=== PATIENT | female | born 1945 | race Caucasian/White ===

== ENCOUNTER 2018-05-20 10:44 | Inpatient (IN) | payer OTHER ==
--- NOTE | 2018-05-20 10:52 | EDPHY ---
H & P Stated Complaint: SOB for 1 week, worse with exertion. Time Seen by Provider: 05/20/18 10:51 - Personal History Current Tetanus Diphtheria and Acellular Pertussis (TDAP): Yes Tetanus Vaccine Date: jan 2011 - Medical/Surgical History Hx Asthma: No Hx Chronic Respiratory Disease: Yes Hx Diabetes: No Hx Cardiac Disease: No Hx Renal Disease: No Hx Cirrhosis: No Hx Alcoholism: No Hx HIV/AIDS: No Hx Splenectomy or Spleen Trauma: No Other PMH: 2013. Constitutional: Initial Vital Signs Temperature (C) 36.4 C 05/20/18 10:45 Heart Rate 126 H 05/20/18 10:45 Respiratory Rate 22 H 05/20/18 10:45 Blood Pressure 138/80 H 05/20/18 10:45 O2 Sat (%) 91 L 05/20/18 10:45 O2 Delivery Mode Room Air O2 (L/minute) 2 Allergies/Adverse Reactions: bacitracin [Bacitracin] Allergy (Unknown, Verified 02/10/11 18:46) latex [Latex] Allergy (Verified 02/10/11 18:46) dust Allergy (Unknown, Uncoded 02/10/11 18:46) Home Medications: Medication Instructions Recorded Aspirin EC [Aspirin EC 81 mg (*)] 81 mg PO DAILY 05/20/18 Atorvastatin Calcium [Lipitor 20 20 mg PO DAILY 05/20/18 mg (*)] Cholecalciferol Vit D3 [Vitamin D3 5,000 units PO DAILY 05/20/18 2000 units tab (OTC)] Cyanocobalamin [Vitamin B12 (*)] 1,000 mcg PO DAILY 05/20/18 Fluticasone Nasal [Flonase Nasal 1 sprays NASAL DAILY PRN 05/20/18 [place] (RX)] Fluticasone/Salmeter 250/50Mcg 1 puffs IH BID 05/20/18 [Advair 250/50 (*)] Herbals/Supplements -Info Only 1 ea PO DAILY 05/20/18 Levothyroxine [Synthroid 75 mcg 75 mcg PO DAILY06 05/20/18 (*)] Loratadine [Claritin] 10 mg PO DAILY 05/20/18 Losartan Potassium 100 mg PO DAILY 05/20/18 Spironolact/Hydrochlorothiazid 1 each PO DAILY 05/20/18 [Spironolactone-Hctz 25-25 Tab] Medical Decision Making - Diagnostics Imaging Results: Imaging Impressions Chest/Thorax CTA 05/20/18 10:58 Impression: 1. Large volume bilateral segmental and subsegmental pulmonary emboli diffusely similar to the prior study from January,. 2. Small left pleural effusion. 3. Bands of subsegmental atelectasis at the lung bases. Some of this could be related to pulmonary infarct as well. Findings discussed with the ophthalmic medical assistant with Gideon Kumar MD at 12: 45 hour, 05/20/2018. Imaging: Discussed imaging studies w/ on call pharmacy technician Radiologist, I viewed and interpreted images myself ED Course/Re-evaluation: CHIEF COMPLAINT: Shortness of breath with exertion HISTORY OF PRESENT ILLNESS: The patient is a 72 y/o female with a history of a PE (2013) and chronic cough complaining of worsening shortness of breath with exertion onset 1 week ago. The patient was on anticoagulants (Lovenox and Coumadin) for a year after her last PE and is still on a baby aspirin daily. For the last several months she has also had a cough associated with clear mucus in the morning. Last Wednesday, one week ago, she noticed worsening shortness of breath with exertion. Her symptoms are not exacerbated when lying flat. Yesterday she stopped taking her Spironolactone/HCTZ, and has noticed that her shortness of breath is mildly improved. However, she now feels like her calves are "hard". Due to her shortness of breath, she decided to present to the emergency department as her symptoms are similar to her last PE. No fever, headache, body aches, lightheadedness, chest pain, heart palpitations, abdominal pain, urinary or bowel complaints, numbness, paresthesias. REVIEW OF SYSTEMS: A comprehensive 10 system review of systems is otherwise negative aside from elements mentioned in the history of present illness and medical decision making. PHYSICAL EXAM: HR, BP, O2 Sat, RR. Temp noted General Appearance: Alert, well hydrated, appropriate, and non-toxic appearing. Head: Atraumatic without scalp tenderness or obvious injury Eyes: Pupils equal, round, reactive to light and accommodation, EOMI, no trauma , no injection. Ears: Clear bilaterally, no perforation, normal landmarks Nose: Atraumatic, no rhinorrhea, clear. Throat: There is no erythema or exudates, no lesions, normal tonsils, mucus membranes moist. Neck: Supple, 2+ carotid upstroke, nontender, no lymphadenopathy. Respiratory: Dyspnea with exertion. No retractions, no distress, no wheezes, and no accessory muscle use. Lungs are clear to auscultation bilaterally. Cardiovascular: Regular rate and rhythm, no murmurs, rubs, or gallops. Bilateral carotid, radial, dorsalis pedis, and posterior tibial pulses intact. Good capillary refill all extremities. Gastrointestinal: Abdomen is soft, nontender, non-distended, no masses, no rebound, no guarding, no peritoneal signs. Musculoskeletal: Normal active ROM of all extremities, atraumatic. Neurological: Alert, appropriate, and interactive. The patient has normal DTRs and non-focal cranial nerves, motor, sensory, and cerebellar exam. Skin: No rashes, good turgor, no nodules on palpation. Past medical history: PE, chronic cough, hypercholesteremia, hypertension, on a diuretic Past surgical history: Denies Family history: Denies Social history: Lives in [place], single, retired DIAGNOSTICS/PROCEDURES/CRITICAL CARE TIME: EKG: The 12 lead EKG was interpreted by myself as sinus tachycardia with a rate of 123. See hard copy and/or "tracemaster" electronic copy for interpretation. Chest CTA: Large volume bilateral segmental and subsegmental pulmonary emboli diffusely similar to the prior study from January,. Small left pleural effusion. DIFFERENTIAL DIAGNOSIS: The differential diagnosis for the patient's shortness of breath and hypoxemia included but was not limited to pneumonia, myocardial infarction, acute mountain sickness, high altitude pulmonary edema, congestive heart failure, and pulmonary embolus. MEDICAL DECISION MAKING: The patient is a 72 y/o female with a history of a PE (2013) and chronic cough presenting with worsening shortness of breath with exertion, onset 1 week ago. The patient was on anticoagulants for a year after her last PE and is still on a baby aspirin daily. Last Wednesday, one week ago, she noticed worsening shortness of breath with exertion. Her symptoms are not exacerbated when lying flat. Yesterday she stopped taking her Spironolactone/HCTZ, and has noticed that her shortness of breath is mildly improved. On exam she has distinct dyspnea with exertion. I am concerned that she has a PE. Labs, EKG and CTA ordered. Patient will need a CTA due to her prior history of a PE as well as her age; DuoNeb administered. 1059: I interpreted patient's EKG as sinus tachycardia with a rate of 123, which is concerning as this is indicative of a PE. 1245: I spoke with Dr. Proctor, radiologist, regarding this patient's chest CTA. She has large volume bilateral segmental and subsegmental pulmonary emboli diffusely similar to the prior study from January,. She also a small left pleural effusion. 1255: Reassessed patient and discussed laboratory and imaging findings. I have discussed plan for admission, which she is comfortable with. 120mg SC Lovenox administered. 1258: I consulted with the hospitalist service, Dr. Martinez accepts admission of this patient. - Data Points Laboratory Results: Laboratory Results 05/20/18 11:25 05/20/18 11:25 05/20/18 05/20/18 05/20/18 11:31 11:31 11:25 WBC RBC Hgb POC Hgb 15.0 gm/dL gm/dL (12.6-16.3) Hct POC Hct 44 % % (38-47) MCV MCH MCHC RDW Plt Count MPV Neut % (Auto) Lymph % (Auto) [place] % (Auto) Eos % (Auto) Baso % (Auto) Nucleat RBC Rel Count Absolute Neuts (auto) Absolute Lymphs (auto) Absolute Monos (auto) Absolute Eos (auto) Absolute Basos (auto) Absolute Nucleated RBC Immature Gran % Immature Gran # POC Sodium 136 mEq/L mEq/L (135-145) Sodium 133 mEq/L L mEq/L (135-145) POC Potassium 3.8 mEq/L mEq/L (3.3-5.0) Potassium 4.3 mEq/L mEq/L (3.5-5.2) POC Chloride 96 mEq/L L mEq/L (97-110) Chloride 96 mEq/L L mEq/L (97-110) Carbon Dioxide 26 mEq/l mEq/l (22-31) POC Total CO2 25 mEq/L mEq/L (22-31) Anion Gap 11 mEq/L mEq/L (6-14) POC BUN 18 mg/dL mg/dL (7-23) BUN 19 mg/dL mg/dL (7-23) Creatinine 0.8 mg/dL mg/dL (0.6-1.0) POC Creatinine 0.9 mg/dL mg/dL (0.6-1.0) Estimated GFR > 60 Glucose 113 mg/dL H mg/dL (70-100) POC Glucose 120 mg/dL H mg/dL (70-100) Calcium 9.9 mg/dL mg/dL (8.5-10.4) POC Troponin I 0.00 ng/mL ng/mL (0.00-0.08) NT-Pro-B Natriuret Pep 140 pg/mL H pg/mL (0-125) 05/20/18 11:25 WBC 8.72 10^3/uL 10^3/uL (3.80-9.50) RBC 4.26 10^6/uL 10^6/uL (4.18-5.33) Hgb 14.0 g/dL g/dL (12.6-16.3) POC Hgb Hct 41.5 % % (38.0-47.0) POC Hct MCV 97.4 fL fL (81.5-99.8) MCH 32.9 pg pg (27.9-34.1) MCHC 33.7 g/dL g/dL (32.4-36.7) RDW 15.1 % % (11.5-15.2) Plt Count 204 10^3/uL 10^3/uL (150-400) MPV 10.0 fL fL (8.7-11.7) Neut % (Auto) 80.3 % H % (39.3-74.2) Lymph % (Auto) 9.4 % L % (15.0-45.0) [place] % (Auto) 8.4 % % (4.5-13.0) Eos % (Auto) 1.0 % % (0.6-7.6) Baso % (Auto) 0.6 % % (0.3-1.7) Nucleat RBC Rel Count 0.0 % % (0.0-0.2) Absolute Neuts (auto) 7.00 10^3/uL H 10^3/uL (1.70-6.50) Absolute Lymphs (auto) 0.82 10^3/uL L 10^3/uL (1.00-3.00) Absolute Monos (auto) 0.73 10^3/uL 10^3/uL (0.30-0.80) Absolute Eos (auto) 0.09 10^3/uL 10^3/uL (0.03-0.40) Absolute Basos (auto) 0.05 10^3/uL 10^3/uL (0.02-0.10) Absolute Nucleated RBC 0.00 10^3/uL 10^3/uL (0-0.01) Immature Gran % 0.3 % % (0.0-1.1) Immature Gran # 0.03 10^3/uL 10^3/uL (0.00-0.10) POC Sodium Sodium POC Potassium Potassium POC Chloride Chloride Carbon Dioxide POC Total CO2 Anion Gap POC BUN BUN Creatinine POC Creatinine Estimated GFR Glucose POC Glucose Calcium POC Troponin I NT-Pro-B Natriuret Pep Medications Given: Discontinued Medications Albuterol/Ipratropium (Duoneb) 3 ml IH EDNOW ONE Stop: 05/20/18 10:58 Last Admin: 05/20/18 11:44 Dose: 3 ml Enoxaparin Sodium (Lovenox) 120 mg SC EDNOW ONE Stop: 05/20/18 12:54 Last Admin: 05/20/18 13:33 Dose: 120 mg Point of Care Test Results: Chemistry 05/20/18 05/20/18 11:31 11:31 POC Sodium 136 mEq/L mEq/L (135-145) POC Potassium 3.8 mEq/L mEq/L (3.3-5.0) POC Chloride 96 mEq/L L mEq/L (97-110) POC Total CO2 25 mEq/L mEq/L (22-31) POC BUN 18 mg/dL mg/dL (7-23) POC Creatinine 0.9 mg/dL mg/dL (0.6-1.0) POC Glucose 120 mg/dL H mg/dL (70-100) POC Troponin I 0.00 ng/mL ng/mL (0.00-0.08) ISTAT H&H 05/20/18 11:31 POC Hgb 15.0 gm/dL gm/dL (12.6-16.3) POC Hct 44 % % (38-47) Departure - Departure Disposition: [facility] Acute Clinical Impression: Bilateral Large Volume PE, Recurrent pulmonary embolism Pulmonary embolism Qualifiers: Pulmonary embolism type: other Chronicity: acute Acute cor pulmonale presence: without acute cor pulmonale Qualified Code(s): I26.99 - Other pulmonary embolism without acute cor pulmonale Condition: Fair Report Scribed for: Gideon Kumar Report Scribed by: Gin Mendoza Date of Report: 05/20/18 Time of Report: 10:52
[2018-05-20] MEDS ORDERED: IPRATROPIUM/ALBUTEROL 3 ML DEYVIAL IH ONE (10:57)
[2018-05-20 11:40] LABS: PLATELET COUNT 204 10^3/uL (150-400)
[2018-05-20] MEDS ORDERED: IOPAMIDOL (ISOVUE 370) 100 ML BTL IV ONE (11:50)
--- NOTE | 2018-05-20 12:17 | CPEKG ---
Test Reason : OPEN Blood Pressure : / mmHG Vent. Rate : 123 BPM Atrial Rate : 124 BPM P-R Int : 165 ms QRS Dur : 079 ms QT Int : 302 ms P-R-T Axes : 010 005 088 degrees QTc Int : 432 ms Sinus tachycardia Confirmed by Gideon Kumar ([id number]) on 05/20/2018 12:17:09 PM Referred By: Gideon Kumar Confirmed By:Gideon Kumar
[2018-05-20] MEDS ORDERED: ENOXAPARIN 120 MG/0.8 ML SYR SC ONE (12:53)
[2018-05-20] MEDS ORDERED: ONDANSETRON 4 MG/2 ML VIAL IVP PRN (13:50)
[2018-05-20] MEDS ORDERED: ACETAMINOPHEN 325 MG TAB PO PRN (13:50)
[2018-05-20] MEDS ORDERED: ONDANSETRON DISINTEGRATING 4 MG TAB PO PRN (13:50)
[2018-05-20 15:12] LABS: INR 1.09 (0.83-1.16); PROTIME(PATIENT) 13.7 SEC (12.0-15.0)
[2018-05-20] MEDS ORDERED: FLUTICASONE NASAL 120 SPRAYS/16 GM MDI EACHNARE PRN (15:12)
--- NOTE | 2018-05-20 18:25 | PDGENHP ---
History and Physical - Chief Complaint SOB - History of Present Illness Jerilyn Leon is a 72 yo F with a PMHx of PE (2013), HTN, Hypothyroidism, HLD, chronic cough who presents to ED for SOB. She reports that she has had progressively worsening JOHNSON for the past week. It has gotten so severe where she cant do simple tasks like laundry with significant SOB. She reports a chronic cough with clear sputum, no recent changes. She notes that she was placed on BP meds in January including Losartan and Spironolactone/HCTZ which she stopped yesterday with some improvement in SOB. She denies any f/c, chest pain, LH, abdominal pain, dysuria, d/c. She does note some increased swelling in her legs b/l. History Information - Allergies/Home Medication List Allergies/Adverse Reactions: bacitracin [Bacitracin] Allergy (Unknown, Verified 02/10/11 18:46) latex [Latex] Allergy (Verified 02/10/11 18:46) dust Allergy (Unknown, Uncoded 02/10/11 18:46) Home Medications: Aspirin EC [Aspirin EC 81 mg (*)] 81 mg PO DAILY 05/20/18 [Last Taken 05/20/18] Atorvastatin Calcium [Lipitor 20 mg (*)] 20 mg PO DAILY 05/20/18 [Last Taken 07/03] Cholecalciferol Vit D3 [Vitamin D3 2000 units tab (OTC)] 5,000 units PO DAILY [Last Taken 05/20/18] Cyanocobalamin [Vitamin B12 (*)] 1,000 mcg PO DAILY 05/20/18 [Last Taken ] Fluticasone Nasal [Flonase Nasal [place] (RX)] 1 sprays NASAL DAILY PRN 05/20/18 [ Last Taken 05/18/18] Fluticasone/Salmeter 250/50Mcg [Advair 250/50 (*)] 1 puffs IH BID 05/20/18 [ Last Taken 05/20/18] Herbals/Supplements -Info Only 1 ea PO DAILY 05/20/18 [Last Taken Unknown] Levothyroxine [Synthroid 75 mcg (*)] 75 mcg PO DAILY06 05/20/18 [Last Taken 07/03] Loratadine [Claritin] 10 mg PO DAILY 05/20/18 [Last Taken 05/20/18] Losartan Potassium 100 mg PO DAILY 05/20/18 [Last Taken 05/20/18] Spironolact/Hydrochlorothiazid [Spironolactone-Hctz 25-25 Tab] 1 each PO DAILY 05/20/18 [Last Taken 05/18/18] I have personally reviewed and updated: family history, medical history, social history, surgical history - Past Medical History hypertension, hyperlipidemia, pulmonary embolism - Surgical History Reports: no pertinent surgical hx - Family History Positive for: non-pertinent - Social History Smoking Status: Former smoker Review of Systems Review of Systems: ROS: 10pt was reviewed & negative except for what was stated in HPI & below Physical Exam Physical Exam: Temp Pulse Resp BP Pulse Ox 36.4 C 96 14 116/80 96 05/20/18 10:45 05/20/18 14:43 05/20/18 14:43 05/20/18 14:43 05/20/18 14:43 O2 (L/minute) 4 Constitutional: obese Eyes: PERRL Ears, Nose, Mouth, Throat: moist mucous membranes Cardiovascular: tachycardia Respiratory: no respiratory distress, clear to auscultation Gastrointestinal: soft, non-tender abdomen Skin: warm Musculoskeletal: full muscle strength Neurologic: AAOx3 Psychiatric: interacting appropriately Lab Data & Imaging Review 05/20/18 11:25 05/20/18 11:25 WBC 8.72 10^3/uL (3.80-9.50) 05/20/18 11:25 RBC 4.26 10^6/uL (4.18-5.33) 05/20/18 11:25 Hgb 14.0 g/dL (12.6-16.3) 05/20/18 11:25 POC Hgb 15.0 gm/dL (12.6-16.3) 05/20/18 11:31 Hct 41.5 % (38.0-47.0) 05/20/18 11:25 POC Hct 44 % (38-47) 05/20/18 11:31 MCV 97.4 fL (81.5-99.8) 05/20/18 11:25 MCH 32.9 pg (27.9-34.1) 05/20/18 11:25 MCHC 33.7 g/dL (32.4-36.7) 05/20/18 11:25 RDW 15.1 % (11.5-15.2) 05/20/18 11:25 Plt Count 204 10^3/uL (150-400) 05/20/18 11:25 MPV 10.0 fL (8.7-11.7) 05/20/18 11:25 Neut % (Auto) 80.3 % (39.3-74.2) H 05/20/18 11:25 Lymph % (Auto) 9.4 % (15.0-45.0) L 05/20/18 11:25 [place] % (Auto) 8.4 % (4.5-13.0) 05/20/18 11:25 Eos % (Auto) 1.0 % (0.6-7.6) 05/20/18 11:25 Baso % (Auto) 0.6 % (0.3-1.7) 05/20/18 11:25 Nucleat RBC Rel Count 0.0 % (0.0-0.2) 05/20/18 11:25 Absolute Neuts (auto) 7.00 10^3/uL (1.70-6.50) H 05/20/18 11:25 Absolute Lymphs (auto) 0.82 10^3/uL (1.00-3.00) L 05/20/18 11:25 Absolute Monos (auto) 0.73 10^3/uL (0.30-0.80) 05/20/18 11:25 Absolute Eos (auto) 0.09 10^3/uL (0.03-0.40) 05/20/18 11:25 Absolute Basos (auto) 0.05 10^3/uL (0.02-0.10) 05/20/18 11:25 Absolute Nucleated RBC 0.00 10^3/uL (0-0.01) 05/20/18 11:25 Immature Gran % 0.3 % (0.0-1.1) 05/20/18 11:25 Immature Gran # 0.03 10^3/uL (0.00-0.10) 05/20/18 11:25 PT 13.7 SEC (12.0-15.0) 05/20/18 13:25 INR 1.09 (0.83-1.16) 05/20/18 13:25 APTT 28.0 SEC (23.0-38.0) 05/20/18 13:25 Heparin Anti-Xa, Unfract < 0.10 IU/mL (0.32-0.67) L 05/20/18 13:25 POC Sodium 136 mEq/L (135-145) 05/20/18 11:31 Sodium 133 mEq/L (135-145) L 05/20/18 11:25 POC Potassium 3.8 mEq/L (3.3-5.0) 05/20/18 11:31 Potassium 4.3 mEq/L (3.5-5.2) 05/20/18 11:25 POC Chloride 96 mEq/L (97-110) L 05/20/18 11:31 Chloride 96 mEq/L (97-110) L 05/20/18 11:25 Carbon Dioxide 26 mEq/l (22-31) 05/20/18 11:25 POC Total CO2 25 mEq/L (22-31) 05/20/18 11:31 Anion Gap 11 mEq/L (6-14) 05/20/18 11:25 POC BUN 18 mg/dL (7-23) 05/20/18 11:31 BUN 19 mg/dL (7-23) 05/20/18 11:25 Creatinine 0.8 mg/dL (0.6-1.0) 05/20/18 11:25 POC Creatinine 0.9 mg/dL (0.6-1.0) 05/20/18 11:31 Estimated GFR > 60 05/20/18 11:25 Glucose 113 mg/dL (70-100) H 05/20/18 11:25 POC Glucose 120 mg/dL (70-100) H 05/20/18 11:31 Calcium 9.9 mg/dL (8.5-10.4) 05/20/18 11:25 POC Troponin I 0.00 ng/mL (0.00-0.08) 05/20/18 11:31 NT-Pro-B Natriuret Pep 140 pg/mL (0-125) H 05/20/18 11:25 Assessment & Plan Assessment: Pulmonary embolism (Acute) - Reports JOHNSON worsening for past week - CTA on admission showing large volume b/l segmental and subsegmental PEs - Has had PE in 2013 perioperatively, was on coumadin at that time - Started on Heparin gtt in ED, transition to PO AC tomorrow as appropriate - No clear etiology for PE, patient unsure of age-appropriate cancer screening including mammogram, colonoscopy, would f/u with PCP to complete these - BNP 140, Troponin negative on admission Hyponatremia - Na 133on admission - Repeat Na in the AM HLD - Continue home Atorvastatin Hypothyroidism - Continue home levothyroxine FEN: Regular DVT PPx: Heparin gtt Code: FULL Dispo: Admit to Observation
[2018-05-20] MEDS: FLUTICASONE/SALMETER 250/50MCG DISKUS IH SCH (20:11)
[2018-05-21] MEDS: HEPARIN 10,000 UNIT/10 ML MDV (1,000 UNIT/ML) IVP PRN ×2 (01:48→18:40)
[2018-05-21] MEDS: HEPARIN/DEXTROSE 500 ML IV SCH ×2 (01:49→21:44)
[2018-05-21] MEDS: LEVOTHYROXINE 75 MCG TAB PO SCH (05:00)
[2018-05-21] MEDS: ATORVASTATIN CALCIUM 20 MG TAB PO SCH (07:55)
[2018-05-21] MEDS: CYANO/VITAMIN B12 1000 MCG TAB PO SCH (07:55)
[2018-05-21] MEDS: ASPIRIN EC 81 MG TAB PO SCH (07:55)
[2018-05-21] MEDS: CETIRIZINE 10 MG TAB PO SCH (07:55)
[2018-05-21] MEDS: LOSARTAN POTASSIUM 50 MG TAB PO SCH (07:58)
[2018-05-21] MEDS: FLUTICASONE/SALMETER 250/50MCG DISKUS IH SCH ×2 (10:08→21:35)
--- NOTE | 2018-05-21 14:27 | ASMTCMCOM ---
CM Note CM Note Notes: Pt was admitted with SOB, bilateral pulmonary emboli. She has a hx of PEs. Pt lives alone in a condo in [place]. PT/OT have cleared pt. Anticipate d/c with no CM needs when medically cleared. CM will continue to follow for any change in needs. D/C plan: anticipate home independent Date Signed: 05/21/2018 02:26 PM Electronically Signed By:KACY Malave
--- NOTE | 2018-05-21 15:34 | HOSPPROG ---
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, unprovoked - lifelong anticoagulation recommended * Possible hematuria -check UA * HTN -holding diuretic for low BP * Morbid obesity -BMI 40 Subjective: Still SOB with exertion Objective: Vital Signs Temp Pulse Resp BP Pulse Ox 36.6 C 83 16 121/60 H 96 05/21/18 15:08 05/21/18 15:08 05/21/18 15:08 05/21/18 15:08 05/21/18 15:08 Laboratory Results 05/21/18 04:55 PT 13.7 SEC (12.0-15.0) 05/20/18 13:25 INR 1.09 (0.83-1.16) 05/20/18 13:25 CTA chest - large volume PE - Time Spent With Patient Time Spent with Patient: greater than 35 minutes (extensive questions answered) Time Spent with Patient: Greater than 35 minutes spent on this patients care, greater than 50% of time spent counseling, educating, and coordinating care regarding the above mentioned plan. - Physical Exam Constitutional: no apparent distress, appears nourished, not in pain Cardiovascular: regular rate and rhythym, no murmur, rub, or gallop Respiratory: no respiratory distress, no rales or rhonchi, clear to auscultation Skin: no rashes or abrasions, no fluctuance, no induration Neurologic: AAOx3, sensation intact bilaterally Psychiatric: interacting appropriately ICD10 Worksheet Patient Problems: Problems Problem Status Onset Pulmonary embolism Acute Recurrent pulmonary embolism Acute
--- NOTE | 2018-05-21 18:31 | PDMN ---
Medical Necessity Medical necessity: MCG M290 PE, A-4 days: 72 yo presents with SOB and worsening JOHNSON. Eval reveals acute PE, initially OBS for workup/tx but pt meets IP criteria med nec after 24 hours OBS care as pt still w/ persistent hypoxia with sig JOHNSON, IV heparin to continue. Important to note, this is 2nd PE event unprovoked. Pt cont to require O2 to maintain sat>90%. Hx PE, HTN, Hypothyroid , HLD, chronic cough. Change to Ip status 05/21/18@1531 per MD order
[2018-05-22] MEDS: LEVOTHYROXINE 75 MCG TAB PO SCH (05:07)
[2018-05-22] MEDS: LOSARTAN POTASSIUM 50 MG TAB PO SCH (07:46)
[2018-05-22] MEDS: CETIRIZINE 10 MG TAB PO SCH (07:50)
[2018-05-22] MEDS: CYANO/VITAMIN B12 1000 MCG TAB PO SCH (07:50)
[2018-05-22] MEDS: ASPIRIN EC 81 MG TAB PO SCH (07:50)
[2018-05-22] MEDS: ATORVASTATIN CALCIUM 20 MG TAB PO SCH (07:50)
[2018-05-22] MEDS: FLUTICASONE/SALMETER 250/50MCG DISKUS IH SCH ×2 (09:45→21:09)
[2018-05-22] MEDS: HEPARIN/DEXTROSE 500 ML IV SCH (12:05)
--- NOTE | 2018-05-22 17:22 | HOSPPROG ---
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, unprovoked - lifelong anticoagulation recommended * Microscopic hematuria -outpatient urology * HTN -holding diuretic for low BP * Morbid obesity -BMI 40 Subjective: still SOB with exertion, doesn't feel like she could handle at home , still on O2 Objective: Vital Signs Temp Pulse Resp BP Pulse Ox 36.4 C 81 19 108/59 L 94 05/22/18 15:34 05/22/18 15:34 05/22/18 15:34 05/22/18 15:34 05/22/18 15:34 Laboratory Results 05/22/18 05:13 05/21/18 05/22/18 05/23/18 05:59 05:59 05:59 Intake Total 600 Balance 600 PT 13.7 SEC (12.0-15.0) 05/20/18 13:25 INR 1.09 (0.83-1.16) 05/20/18 13:25 - Physical Exam Constitutional: no apparent distress, appears nourished, not in pain Cardiovascular: regular rate and rhythym, no murmur, rub, or gallop Respiratory: no respiratory distress, no rales or rhonchi, clear to auscultation Gastrointestinal: normoactive bowel sounds, soft, non-tender abdomen, no palpable masses Skin: no rashes or abrasions, no fluctuance, no induration Neurologic: AAOx3, sensation intact bilaterally Psychiatric: interacting appropriately, not anxious, not encephalopathic, thought process linear ICD10 Worksheet Patient Problems: Problems Problem Status Onset Pulmonary embolism Acute Recurrent pulmonary embolism Acute
[2018-05-23] MEDS: HEPARIN/DEXTROSE 500 ML IV SCH ×2 (02:08→17:31)
[2018-05-23] MEDS: LEVOTHYROXINE 75 MCG TAB PO SCH (05:20)
[2018-05-23] MEDS: FLUTICASONE/SALMETER 250/50MCG DISKUS IH SCH ×2 (08:35→21:12)
[2018-05-23] MEDS: CYANO/VITAMIN B12 1000 MCG TAB PO SCH (08:49)
[2018-05-23] MEDS: LOSARTAN POTASSIUM 50 MG TAB PO SCH (08:49)
[2018-05-23] MEDS: ASPIRIN EC 81 MG TAB PO SCH (08:50)
[2018-05-23] MEDS: ATORVASTATIN CALCIUM 20 MG TAB PO SCH (08:50)
[2018-05-23] MEDS: CETIRIZINE 10 MG TAB PO SCH (08:50)
--- NOTE | 2018-05-23 16:17 | ASMTCMCOM ---
CM Note CM Note Notes: Patient remains hypoxic with significant JOHNSON so continues IV Heparin. This is the second event unprovoked so lifelong anticoagulation is being recommended. D/C plan remains independent for now. CM will follow. Date Signed: 05/23/2018 03:52 PM Electronically Signed By:Lorna Mcfarland LCSW
--- NOTE | 2018-05-23 17:32 | HOSPPROG ---
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 Was okay O2 sat on room air, but later desat again with increased respiratory distress Objective: Vital Signs Temp Pulse Resp BP Pulse Ox 37.0 C 74 27 H 115/70 93 05/23/18 16:00 05/23/18 16:00 05/23/18 16:00 05/23/18 16:00 05/23/18 16:00 Laboratory Results 05/23/18 05:07 05/22/18 05/23/18 05/24/18 05:59 05:59 05:59 Intake Total 600 Balance 600 PT 13.7 SEC (12.0-15.0) 05/20/18 13:25 INR 1.09 (0.83-1.16) 05/20/18 13:25 - Physical Exam Constitutional: no apparent distress, appears nourished, not in pain Cardiovascular: regular rate and rhythym, no murmur, rub, or gallop Respiratory: no respiratory distress, no rales or rhonchi, clear to auscultation Gastrointestinal: normoactive bowel sounds, soft, non-tender abdomen, no palpable masses Skin: no rashes or abrasions, no fluctuance, no induration Neurologic: AAOx3, sensation intact bilaterally Psychiatric: interacting appropriately, not anxious, not encephalopathic, thought process linear ICD10 Worksheet Patient Problems: Problems Problem Status Onset Pulmonary embolism Acute Recurrent pulmonary embolism Acute
[2018-05-24] MEDS: LEVOTHYROXINE 75 MCG TAB PO SCH (05:47)
[2018-05-24] MEDS: ATORVASTATIN CALCIUM 20 MG TAB PO SCH (08:32)
[2018-05-24] MEDS: CYANO/VITAMIN B12 1000 MCG TAB PO SCH (08:32)
[2018-05-24] MEDS: CETIRIZINE 10 MG TAB PO SCH (08:32)
[2018-05-24] MEDS: HEPARIN/DEXTROSE 500 ML IV SCH (08:32)
[2018-05-24] MEDS: ASPIRIN EC 81 MG TAB PO SCH (08:33)
[2018-05-24] MEDS: LOSARTAN POTASSIUM 50 MG TAB PO SCH (08:33)
[2018-05-24] MEDS: FLUTICASONE/SALMETER 250/50MCG DISKUS IH SCH ×2 (10:22→21:04)
[2018-05-24] MEDS ORDERED: KETOROLAC 30 MG/1 ML SDV IVP ONE (12:03)
--- NOTE | 2018-05-24 16:18 | ASMTCMCOM ---
CM Note CM Note Notes: Spoke with OT and they are recommending patient get home health nursing services to assist patient with her oxygen. CM will need to follow up tomorrow as we are out of time today. CM will follow. Date Signed: 05/24/2018 04:18 PM Electronically Signed By:Lorna Mcfarland LCSW
[2018-05-24] MEDS ORDERED: KETOROLAC 15 MG/1 ML SDV IVP SCH (18:00)
--- NOTE | 2018-05-24 19:02 | HOSPPROG ---
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, unprovoked - lifelong anticoagulation recommended -change to Lovenox - can change to Eliquis at discharge * Pulmonary Infarct -new pleuritic back pain with corresponding infiltrate on CXR -start IV toradol * Microscopic hematuria -outpatient urology * HTN -holding diuretic for low BP * Morbid obesity -BMI 40 Subjective: New pleuritic back pain at left scapula last night Objective: Vital Signs Temp Pulse Resp BP Pulse Ox 36.9 C 74 24 H 107/62 94 05/24/18 16:34 05/24/18 16:34 05/24/18 16:34 05/24/18 16:34 05/24/18 16:34 Laboratory Results 05/23/18 05:07 05/23/18 05/24/18 05/25/18 05:59 05:59 05:59 Intake Total 1226 Balance 1226 PT 13.7 SEC (12.0-15.0) 05/20/18 13:25 INR 1.09 (0.83-1.16) 05/20/18 13:25 CXR viewed, my personal interpretation is - retrocardiac infiltrate on left tele reviewed - NSR Laboratory Tests 05/22/18 05/22/18 05/23/18 14:07 19:48 05:07 Heparin Anti-Xa, Unfract 0.53 0.48 0.52 05/24/18 03:39 Heparin Anti-Xa, Unfract 0.38 - Physical Exam Constitutional: no apparent distress, appears nourished, not in pain Cardiovascular: regular rate and rhythym, no murmur, rub, or gallop Respiratory: no respiratory distress, no rales or rhonchi, clear to auscultation Gastrointestinal: normoactive bowel sounds, soft, non-tender abdomen, no palpable masses Skin: no rashes or abrasions, no fluctuance, no induration Musculoskeletal: full muscle strength, no muscle tenderness, normal joint ROM Neurologic: AAOx3, sensation intact bilaterally Psychiatric: interacting appropriately, not anxious, not encephalopathic, thought process linear ICD10 Worksheet Patient Problems: Problems Problem Status Onset Pulmonary embolism Acute Recurrent pulmonary embolism Acute
[2018-05-24] MEDS ORDERED: KETOROLAC 15 MG/1 ML SDV IVP PRN (19:04)
[2018-05-24] MEDS: ENOXAPARIN 120 MG/0.8 ML SYR SC SCH (21:23)
[2018-05-25] MEDS: LEVOTHYROXINE 75 MCG TAB PO SCH (04:23)
[2018-05-25 05:00] LABS: PLATELET COUNT 216 10^3/uL (150-400)
[2018-05-25 07:46] VITALS: BP 118/61
[2018-05-25] MEDS: ATORVASTATIN CALCIUM 20 MG TAB PO SCH (08:22)
[2018-05-25] MEDS: CETIRIZINE 10 MG TAB PO SCH (08:22)
[2018-05-25] MEDS: LOSARTAN POTASSIUM 50 MG TAB PO SCH (08:22)
[2018-05-25] MEDS: ASPIRIN EC 81 MG TAB PO SCH (08:22)
[2018-05-25] MEDS: CYANO/VITAMIN B12 1000 MCG TAB PO SCH (08:22)
[2018-05-25] MEDS: ENOXAPARIN 120 MG/0.8 ML SYR SC SCH (08:23)
[2018-05-25] MEDS: FLUTICASONE/SALMETER 250/50MCG DISKUS IH SCH (08:38)
--- NOTE | 2018-05-25 10:17 | PDHOMEO2F ---
Home Oxygen Face to Face Home Orders: I certify that a physician or a nurse practitioner or physician's assistant loan processor has had a [id number] encounter with this patient on the date of this order due to the diagnosis listed, which relates to the primary reason the patient requires home oxygen. Alternative treatments have been tried, or considered, and deemed ineffective. It is anticipated that supplemental oxygen will result in improvement with treatment. Home oxygen qualifying diagnosis: PE SpO2 on room air (%): 84 Frequency of home oxygen needed: continuous Home oxygen liters per minute: 2 Home oxygen delivery device: nasal cannula Concentrator: Yes E-tanks for mobility and back up: Yes If ordering portable O2, is the patient mobile in the home?: Yes I certify that, based on these findings, the home oxygen is medically necessary for this patient for the following length of time. Length of time home oxygen needed: 1 month
--- NOTE | 2018-05-25 10:52 | ASMTLACE ---
LACE Length of stay for Answers: 3 days current admission Acuity / Level of Answers: Yes Care: Did the patient have an inpatient admission? Comorbidities - select Answers: Other Notes: pulmonary embolism, HTN all that apply # of Emergency department Answers: 1-2 visits in the last 6 months Score: 8 Date Signed: 05/25/2018 10:51 AM Electronically Signed By:Rose Goodman RN
--- NOTE | 2018-05-25 10:55 | ASMTCMCOM ---
CM Note CM Note Notes: Met with pt, will dc today independent w/O2. Made appointment for pt with MD Aurea Jordan, per pt request. Appt scheduled for 06/08 at 12pm. Clem to deliver Eliquis befor pt leaves and per COURSE DEVELOPER should take 1 pill pior to leaving hospital. No other needs, CM available for any changes. DC Plan: Independent Date Signed: 05/25/2018 10:54 AM Electronically Signed By:Rose Goodman RN
--- NOTE | 2018-05-25 14:05 | GDS ---
[f rep st] DISCHARGE SUMMARY DISCHARGE DIAGNOSES: 1. Large-volume pulmonary emboli. 2. Pulmonary infarct. 3. Microscopic hematuria. 4. Hypertension. 5. Morbid obesity. 6. Acute hypoxemic respiratory failure. STUDIES AND PROCEDURES: CT angio of the chest. PHYSICAL EXAM: GENERAL: The patient is alert. VITAL SIGNS: Afebrile at 36.6, pulse is 93, respira tory rate is 20, blood pressure is 118/61. She is saturating 91% on 1.5 L. HOSPITAL COURSE: The patient is a 72-year-old female who presented to the emergency room with compla ints of shortness of breath. She was evaluated and diagnosed with: 1. Large-volume pulmonary emboli. During this hospitalization, she was treated with a heparin drip and then transitioned to Lovenox. Her condition has significantly improved. She will be discharged on Eliquis and follow up in the outpatient setting. It is recommended that she have appropriate [facility] er screening including mammography, as well as colonoscopy in the outpatient setting. 2. Hyponatremia. This has resolved during this hospital course. 3. Acute hypoxemic respiratory failure in the setting of pulmonary embolism. 4. Pulmonary infarct. The patient was treated with supportive management. 5. Microcytic hematuria. She will follow up with outpatient Urology. 6. Hypertension. This is stable. 7. Morbid obesity. The patient is aware of her chronic condition. 8. Disposition: She will be discharged home with supplemental oxygen. There are no pending studies . DISCHARGE MEDICATIONS: Eliquis is a new medication that has been provided for the patient prior to d isposition. She has been continued on all her other previously prescribed home medications except fo r her spironolactone/hydrochlorothiazide. FOLLOWUP: Followup will be with Dr. Aurea Jordan in the outpatient setting. An appointment has been arranged for her for June 08. TIME SPENT WITH PATIENT: I spent greater than 35 minutes in the care, coordination and management of this patient's disposition. /[id number]/MODL
== END 2018-05-25 12:48 | disposition home or self-care (01) | DRG 175 ==
LOC: F3E 15:38 → OBSVTOIN 05-21 15:31
PROVIDERS: ADMIT Internal Medicine; ATTEND Internal Medicine
DX: I26.99 Other pulmonary embolism without acute cor pulmonale (principal); J96.01 Acute respiratory failure with hypoxia; E87.1 Hypo-osmolality and hyponatremia; R31.29 Other microscopic hematuria; I10 Essential (primary) hypertension; E66.01 Morbid (severe) obesity due to excess calories; E78.5 Hyperlipidemia, unspecified; E03.9 Hypothyroidism, unspecified; Z86.711 Personal history of pulmonary embolism; Z79.82 Long term (current) use of aspirin
CPT/HCPCS: 82435-PO; 82565-PO; 82947-PO; 84132-PO; 84295-PO; 84484-ER; 84520-PO; 85014-ER; 85520-90; 97116-GP; 97161-GP; 97165-GO; 97530-GO; 97535-GO; G0378; J1644; J1650; J1885; Q9967